=== PATIENT | male | born 1985 | race Caucasian/White ===

== ENCOUNTER → 2019-09-05 | Outpatient (CLI) | payer BC ==
[2015-04-08 20:42] VITALS: BP 145/79
[~2019-09-05] MED LIST: MAGIC MOUTHWASH1 M1 PO; VALPROIC ACID250 M1 PO
[2019-09-05 15:19] LABS: ALBUMIN 4.4 g/dL (3.5-5.0); POTASSIUM 4.5 mmol/L (3.5-5.1)
[2019-09-05 15:20] LABS: CALCIUM 9.2 mg/dL (8.3-10.5)
[2019-09-05 15:22] LABS: TOTAL PROTEIN 7.3 g/dL (6.4-8.3)
[2019-09-05 15:23] LABS: TOTAL BILIRUBIN 0.5 mg/dL (0.2-1.2)
[2019-09-05 15:30] LABS: EOS # 0.1 (0.04-0.40); EOS % 1.2 % (0.0-4.0); HEMATOCRIT 46.7 % (42.0-52.0); HEMOGLOBIN 15.9 g/dL (13.5-18.0); LYMPH# 1.9 (1.50-4.00); MEAN CELL VOLUME 90 fl (78-100); MEAN CORPUSCULAR HEMOGLOBIN 31 pg (27-31); MEAN CORPUSCULAR HGB CONC 34 g/dL (33-37); MEAN PLATELET VOLUME 10.3 fl (7.4-10.4); MONO # 0.5 (0.20-0.80); NEU # 2.5 (1.40-6.50); PLATELET COUNT 177 K/mm3 (130-400); WHITE BLOOD COUNT 4.9 K/mm3 (4.8-10.8)
[2019-09-06 04:27] LABS: LEVETIRACETAM (KEPPRA) 27 ug/mL (5-45)
== END ==
LOC: LAB 14:22
PROVIDERS: Family Medicine
DX: R56.9 Unspecified convulsions (principal); Z79.899 Other long term (current) drug therapy

== ENCOUNTER → 2019-11-26 | Outpatient (CLI) | payer OTHER ==
[2015-04-08 20:42] VITALS: BP 145/79
== END ==
LOC: RAD 18:09
DX: M17.12 Unilateral primary osteoarthritis, left knee (principal); M77.32 Calcaneal spur, left foot

== ENCOUNTER 2020-07-26 14:10 | Emergency (ER) | payer OTHER ==
[2020-07-26 14:30] VITALS: BP 129/88
[2020-07-26] MEDS ORDERED: KEPPRA250 MG (15:05)
[2020-07-26] MEDS ORDERED: DEPAKOTE250 M1 (15:05)
[2020-07-26] MEDS ORDERED: PREDNISONE1 MG (15:06)
[2020-07-26 15:13] LABS: ALBUMIN 4.3 g/dL (3.5-5.0); POTASSIUM 3.7 mmol/L (3.5-5.1); SODIUM 140 mmol/L (136-145)
[2020-07-26 15:15] LABS: CALCIUM 9.2 mg/dL (8.3-10.5)
[2020-07-26 15:16] LABS: GLUCOSE 76 mg/dL (75-110); TOTAL PROTEIN 7.2 g/dL (6.4-8.3)
[2020-07-26 15:17] LABS: CARBON DIOXIDE 25 mmol/L (22-29)
[2020-07-26 15:18] LABS: TOTAL BILIRUBIN 0.2 mg/dL (0.2-1.2)
[2020-07-26 15:21] LABS: AST-SGOT 26 U/L (5-34)
[2020-07-26 15:22] LABS: ALT/SGPT 35 U/L (0-55)
[2020-07-26 15:23] LABS: HEMATOCRIT 45.3 % (42.0-52.0); HEMOGLOBIN 15.3 g/dL (13.5-18.0); MEAN CELL VOLUME 89 fl (78-100); MEAN CORPUSCULAR HEMOGLOBIN 30 pg (27-31); MEAN CORPUSCULAR HGB CONC 34 g/dL (33-37); MEAN PLATELET VOLUME 9.7 fl (7.4-10.4); PLATELET COUNT 219 K/mm3 (130-400); RED BLOOD COUNT 5.11 M/mm3 (4.20-5.60); RED CELL DISTRIBUTION WIDTH 11.7 % (11.5-14.5); WHITE BLOOD COUNT 10.9 K/mm3 (4.8-10.8)
[2020-07-26 15:24] LABS: EOS % 0.4 % (0.0-4.0); LYMPH# 4.2 (1.50-4.00); NEU # 55.2 (1.40-6.50)
[2020-07-26 15:50] LABS: TROPONIN-I < 0.03 ng/mL (<0.030)
== END 2020-07-26 17:25 | disposition home or self-care (01) ==
LOC: ED 14:10
PROVIDERS: Nurse Practitioner
DX: R07.9 Chest pain, unspecified (principal); G40.909 Epilepsy, unspecified, not intractable, without status epilepticus; F17.290 Nicotine dependence, other tobacco product, uncomplicated

== ENCOUNTER → 2020-08-23 | Outpatient (CLI) | payer OTHER ==
[2020-07-26 14:30] VITALS: BP 129/88
[~2020-08-23] MED LIST changes: +DEPAKOTE250 M1; +KEPPRA250 MG; +PREDNISONE1 MG
[2020-08-23 16:01] LABS: EOS # 0.1 (0.04-0.40); EOS % 1.2 % (0.0-4.0); HEMATOCRIT 44.1 % (42.0-52.0); HEMOGLOBIN 14.6 g/dL (13.5-18.0); LYMPH# 1.9 (1.50-4.00); MEAN CELL VOLUME 90 fl (78-100); MEAN CORPUSCULAR HEMOGLOBIN 30 pg (27-31); MEAN CORPUSCULAR HGB CONC 33 g/dL (33-37); MEAN PLATELET VOLUME 9.7 fl (7.4-10.4); MONO # 0.3 (0.20-0.80); NEU # 2.8 (1.40-6.50); PLATELET COUNT 211 K/mm3 (130-400); RED BLOOD COUNT 4.89 M/mm3 (4.20-5.60); RED CELL DISTRIBUTION WIDTH 12.2 % (11.5-14.5); WHITE BLOOD COUNT 5.1 K/mm3 (4.8-10.8)
[2020-08-23 16:04] LABS: ALBUMIN 4.2 g/dL (3.5-5.0); POTASSIUM 3.6 mmol/L (3.5-5.1)
[2020-08-23 16:06] LABS: TOTAL PROTEIN 6.8 g/dL (6.4-8.3)
[2020-08-23 16:08] LABS: TOTAL BILIRUBIN 0.3 mg/dL (0.2-1.2)
[2020-08-24 04:15] LABS: LEVETIRACETAM (KEPPRA) 22 ug/mL (5-45)
== END ==
LOC: LAB 15:09
PROVIDERS: Psychiatry & Neurology Neurology
DX: R56.9 Unspecified convulsions (principal); Z79.899 Other long term (current) drug therapy

== ENCOUNTER → 2020-09-14 | Outpatient (CLI) | payer OTHER | LOC: LAB 11:25 | DX: Z20.822 Contact with and (suspected) exposure to COVID-19 (principal) ==

== ENCOUNTER 2021-01-13 13:08 | Outpatient (RCR) | payer OTHER | END 2021-04-13 | disposition home or self-care (01) | LOC: PT | DX: S29.019A Strain of muscle and tendon of unspecified wall of thorax, initial encounter (principal) ==

== ENCOUNTER → 2021-02-18 | Outpatient (CLI) | payer OTHER ==
[2021-02-18 16:25] LABS: BASO # 0.04 (0.02-0.10); EOS # 0.05 (0.04-0.40); HEMOGLOBIN 16.8 g/dL (13.5-18.0); LYMPH# 2.08 (1.50-4.00); MEAN CELL VOLUME 88 fl (78-100); MEAN CORPUSCULAR HEMOGLOBIN 30 pg (27-31); MEAN CORPUSCULAR HGB CONC 34 g/dL (33-37); MEAN PLATELET VOLUME 9.4 fl (7.4-10.4); MONO # 0.51 (0.20-0.80); NEU # 2.36 (1.40-6.50); PLATELET COUNT 184 K/mm3 (130-400); RED BLOOD COUNT 5.57 M/mm3 (4.20-5.60); RED CELL DISTRIBUTION WIDTH 11.6 % (11.5-14.5); WHITE BLOOD COUNT 5.1 K/mm3 (4.8-10.8)
[2021-02-18 16:30] LABS: ALBUMIN 4.5 g/dL (3.5-5.0); POTASSIUM 5.1 mmol/L (3.5-5.1)
[2021-02-18 16:33] LABS: TOTAL PROTEIN 7.6 g/dL (6.4-8.3)
[2021-02-18 16:34] LABS: TOTAL BILIRUBIN 0.6 mg/dL (0.2-1.2)
[2021-02-23 04:30] LABS: LEVETIRACETAM (KEPPRA) 35 ug/mL (5-45)
== END ==
LOC: LAB 16:09
PROVIDERS: Psychiatry & Neurology Neurology
DX: R56.9 Unspecified convulsions (principal); Z79.899 Other long term (current) drug therapy

== ENCOUNTER → 2021-04-01 | Outpatient (CLI) | payer OTHER ==
[2021-04-01 15:42] LABS: BASO # 0.04 K/mm3 (0.02-0.10); EOS # 0.04 K/mm3 (0.04-0.40); EOS % 0.7 % (0.0-4.0); HEMATOCRIT 44.3 % (42.0-52.0); HEMOGLOBIN 14.9 g/dL (13.5-18.0); LYMPH# 1.95 K/mm3 (1.50-4.00); MEAN CELL VOLUME 89 fl (78-100); MEAN CORPUSCULAR HEMOGLOBIN 30 pg (27-31); MEAN CORPUSCULAR HGB CONC 34 g/dL (33-37); MEAN PLATELET VOLUME 9.4 fl (7.4-10.4); MONO # 0.58 K/mm3 (0.20-0.80); NEU # 2.93 K/mm3 (1.40-6.50); PLATELET COUNT 196 K/mm3 (130-400); RED BLOOD COUNT 4.96 M/mm3 (4.20-5.60); RED CELL DISTRIBUTION WIDTH 11.7 % (11.5-14.5); WHITE BLOOD COUNT 5.6 K/mm3 (4.8-10.8)
[2021-04-01 15:48] LABS: ALBUMIN 4.1 g/dL (3.5-5.0); POTASSIUM 4.7 mmol/L (3.5-5.1)
[2021-04-01 15:49] LABS: CALCIUM 9.6 mg/dL (8.3-10.5)
[2021-04-01 15:50] LABS: TOTAL PROTEIN 7.2 g/dL (6.4-8.3)
[2021-04-01 15:52] LABS: TOTAL BILIRUBIN 0.4 mg/dL (0.2-1.2)
== END ==
LOC: LAB 15:26
PROVIDERS: Internal Medicine
DX: Z00.00 Encounter for general adult medical examination without abnormal findings (principal)

== ENCOUNTER → 2021-05-16 | Outpatient (CLI) | payer OTHER | LOC: LAB 08:42 | DX: K90.9 Intestinal malabsorption, unspecified (principal) ==

== ENCOUNTER → 2021-06-07 | Outpatient (CLI) | payer OTHER ==
[2021-06-07 14:08] LABS: BASO # 0.03 K/mm3 (0.02-0.10); EOS # 0.01 K/mm3 (0.04-0.40); EOS % 0.2 % (0.0-4.0); HEMATOCRIT 49.3 % (42.0-52.0); HEMOGLOBIN 16.3 g/dL (13.5-18.0); LYMPH# 1.73 K/mm3 (1.50-4.00); MEAN CELL VOLUME 90 fl (78-100); MEAN CORPUSCULAR HEMOGLOBIN 30 pg (27-31); MEAN CORPUSCULAR HGB CONC 33 g/dL (33-37); MEAN PLATELET VOLUME 9.8 fl (7.4-10.4); MONO # 0.85 K/mm3 (0.20-0.80); NEU # 1.47 K/mm3 (1.40-6.50); PLATELET COUNT 144 K/mm3 (130-400); RED CELL DISTRIBUTION WIDTH 11.7 % (11.5-14.5); WHITE BLOOD COUNT 4.1 K/mm3 (4.8-10.8)
[2021-06-07 14:13] LABS: URINE APPEARANCE CLEAR; URINE BILIRUBIN NEGATIVE (NEGATIVE); URINE BLOOD NEGATIVE (NEGATIVE); URINE COLOR YELLOW; URINE GLUCOSE NEGATIVE (NEGATIVE); URINE KETONE NEGATIVE (NEGATIVE); URINE LEUKOCYTE ESTERASE NEGATIVE (NEGATIVE); URINE NITRATE NEGATIVE (NEGATIVE); URINE PROTEIN(semi-quant) 1+ (NEGATIVE); URINE UROBILINOGEN NORMAL (NORMAL); URINE WBC 0-1 /hpf (0-3)
[2021-06-07 14:14] LABS: ALBUMIN 4.3 g/dL (3.5-5.0)
[2021-06-07 14:16] LABS: CALCIUM 9.4 mg/dL (8.3-10.5)
[2021-06-07 14:17] LABS: TOTAL PROTEIN 7.3 g/dL (6.4-8.3)
[2021-06-07 14:19] LABS: TOTAL BILIRUBIN 0.3 mg/dL (0.2-1.2)
[2021-06-07 15:04] LABS: ERYTHROCYTE SEDIMENTATION RATE 9 mm/hr (0-15)
== END ==
LOC: LAB 13:44
PROVIDERS: Internal Medicine
DX: G40.909 Epilepsy, unspecified, not intractable, without status epilepticus (principal)

== ENCOUNTER → 2021-06-15 | Outpatient (CLI) | payer OTHER | LOC: RAD 06-14 15:00 | DX: K76.0 Fatty (change of) liver, not elsewhere classified (principal) ==

== ENCOUNTER → 2021-08-27 | Outpatient (CLI) | payer OTHER ==
[2021-08-27 11:07] LABS: BASO # 0.03 K/mm3 (0.02-0.10); EOS # 0.05 K/mm3 (0.04-0.40); EOS % 1.5 % (0.0-4.0); HEMATOCRIT 45.3 % (42.0-52.0); HEMOGLOBIN 15.4 g/dL (13.5-18.0); LYMPH# 1.35 K/mm3 (1.50-4.00); MEAN CELL VOLUME 89 fl (78-100); MEAN CORPUSCULAR HEMOGLOBIN 30 pg (27-31); MEAN CORPUSCULAR HGB CONC 34 g/dL (33-37); MEAN PLATELET VOLUME 10.2 fl (7.4-10.4); MONO # 0.42 K/mm3 (0.20-0.80); NEU # 1.46 K/mm3 (1.40-6.50); PLATELET COUNT 167 K/mm3 (130-400); RED BLOOD COUNT 5.08 M/mm3 (4.20-5.60); RED CELL DISTRIBUTION WIDTH 12.3 % (11.5-14.5); WHITE BLOOD COUNT 3.3 K/mm3 (4.8-10.8)
[2021-08-27 11:12] LABS: ALBUMIN 4.3 g/dL (3.5-5.0); POTASSIUM 4.3 mmol/L (3.5-5.1)
[2021-08-27 11:15] LABS: TOTAL PROTEIN 6.9 g/dL (6.4-8.3)
[2021-08-27 11:17] LABS: TOTAL BILIRUBIN 0.4 mg/dL (0.2-1.2)
[2021-08-31 04:53] LABS: LEVETIRACETAM (KEPPRA) 12 ug/mL (5-45)
== END ==
LOC: LAB 10:08
PROVIDERS: Psychiatry & Neurology Neurology
DX: G40.909 Epilepsy, unspecified, not intractable, without status epilepticus (principal); Z79.899 Other long term (current) drug therapy

== ENCOUNTER 2021-11-15 17:06 | Emergency (ER) | payer OTHER ==
[~2021-11-15] VITALS: Ht 177.8 cm; Wt 110.9 kg
[2021-11-15 17:15] VITALS: BP 129/81
[2021-11-15] MEDS ORDERED: DIVALPROEX SOD500 M2 PO (17:51)
[2021-11-15] MEDS ORDERED: PREMIERPRO RX5 MG/GM OP (18:07)
== END 2021-11-15 18:26 | disposition home or self-care (01) ==
LOC: ED 17:06
DX: S05.02XA Injury of conjunctiva and corneal abrasion without foreign body, left eye, initial encounter (principal); F17.290 Nicotine dependence, other tobacco product, uncomplicated; X58.XXXA Exposure to other specified factors, initial encounter; Y92.59 Other trade areas as the place of occurrence of the external cause; Y99.0 Civilian activity done for income or pay

== ENCOUNTER 2021-11-24 08:34 | Emergency (ER) | payer OTHER ==
[~2021-11-24 08:34] MED LIST changes: +DIVALPROEX SOD500 M2 PO; +PREMIERPRO RX5 MG/GM OP
[2021-11-24 08:43] VITALS: BP 118/82
[2021-11-24] MEDS ORDERED: LEVETIRACETAM500 M2 PO (08:47)
[2021-11-24] MEDS ORDERED: ROSUVASTATIN CA20 MG PO (08:47)
[2021-11-24 09:10] LABS: BASO # 0.04 K/mm3 (0.02-0.10); EOS # 0.08 K/mm3 (0.04-0.40); EOS % 1.9 % (0.0-4.0); HEMATOCRIT 40.9 % (42.0-52.0); HEMOGLOBIN 13.9 g/dL (13.5-18.0); LYMPH# 1.68 K/mm3 (1.50-4.00); MEAN CELL VOLUME 91 fl (78-100); MEAN CORPUSCULAR HEMOGLOBIN 31 pg (27-31); MEAN CORPUSCULAR HGB CONC 34 g/dL (33-37); MEAN PLATELET VOLUME 9.8 fl (7.4-10.4); MONO # 0.54 K/mm3 (0.20-0.80); NEU # 1.87 K/mm3 (1.40-6.50); PLATELET COUNT 139 K/mm3 (130-400); RED BLOOD COUNT 4.52 M/mm3 (4.20-5.60); RED CELL DISTRIBUTION WIDTH 11.8 % (11.5-14.5); WHITE BLOOD COUNT 4.2 K/mm3 (4.8-10.8)
[2021-11-24 09:16] LABS: ALBUMIN 4.1 g/dL (3.5-5.0)
[2021-11-24 09:17] LABS: POTASSIUM 4.5 mmol/L (3.5-5.1)
[2021-11-24 09:18] LABS: CALCIUM 9.5 mg/dL (8.3-10.5)
[2021-11-24 09:19] LABS: TOTAL PROTEIN 6.6 g/dL (6.4-8.3)
[2021-11-24 09:21] LABS: TOTAL BILIRUBIN 0.4 mg/dL (0.2-1.2)
[2021-11-24 09:27] LABS: URINE APPEARANCE CLEAR; URINE BILIRUBIN NEGATIVE (NEGATIVE); URINE BLOOD NEGATIVE (NEGATIVE); URINE COLOR YELLOW; URINE GLUCOSE NEGATIVE (NEGATIVE); URINE KETONE 1+ (NEGATIVE); URINE LEUKOCYTE ESTERASE NEGATIVE (NEGATIVE); URINE NITRATE NEGATIVE (NEGATIVE); URINE PROTEIN(semi-quant) NEGATIVE (NEGATIVE); URINE UROBILINOGEN NORMAL (NORMAL); URINE WBC 0-1 /hpf (0-3)
== END 2021-11-24 10:17 | disposition home or self-care (01) ==
LOC: ED 08:34
PROVIDERS: Nurse Practitioner
DX: R11.10 Vomiting, unspecified (principal); R10.84 Generalized abdominal pain; Z28.310 Unvaccinated for COVID-19

== ENCOUNTER → 2022-04-06 | Outpatient (CLI) | payer OTHER ==
[~2022-04-06] MED LIST changes: +LEVETIRACETAM500 M2 PO; +ROSUVASTATIN CA20 MG PO
== END ==
LOC: LAB 17:42
DX: G40.309 Generalized idiopathic epilepsy and epileptic syndromes, not intractable, without status epilepticus (principal)

== ENCOUNTER → 2023-03-10 | Outpatient (CLI) | payer OTHER ==
[~2023-03-10] MED LIST changes: +VITAMIN D3 PO
[2023-03-10 11:29] LABS: HEMATOCRIT 48.5 % (42.0-52.0); HEMOGLOBIN 16.4 g/dL (13.5-18.0); MEAN PLATELET VOLUME 9.6 fl (7.4-10.4); RED BLOOD COUNT 5.37 M/mm3 (4.20-5.60); RED CELL DISTRIBUTION WIDTH 11.8 % (11.5-14.5); WHITE BLOOD COUNT 4.2 K/mm3 (4.8-10.8)
[2023-03-10 11:38] LABS: ALBUMIN 4.6 g/dL (3.5-5.0)
[2023-03-10 11:39] LABS: POTASSIUM 4.4 mmol/L (3.5-5.1)
[2023-03-10 11:40] LABS: CALCIUM 9.9 mg/dL (8.3-10.5)
[2023-03-10 11:41] LABS: TOTAL PROTEIN 7.5 g/dL (6.4-8.3)
[2023-03-10 11:43] LABS: TOTAL BILIRUBIN 0.6 mg/dL (0.2-1.2)
== END ==
LOC: LAB 11:13
PROVIDERS: Nurse Practitioner
DX: G40.309 Generalized idiopathic epilepsy and epileptic syndromes, not intractable, without status epilepticus (principal); Z79.899 Other long term (current) drug therapy

== ENCOUNTER → 2024-06-07 | Outpatient (CLI) | payer OTHER | LOC: RAD 15:47 | DX: M54.50 Low back pain, unspecified (principal); W19.XXXA Unspecified fall, initial encounter ==